=== PATIENT | male | born 1940 | race Caucasian/White ===

== ENCOUNTER 2016-12-16 11:16 | Emergency (ER) | payer OTHER ==
[~2016-12-16] VITALS: Ht 170.2 cm; Wt 97.5 kg
--- NOTE | 2016-12-16 11:47 | ED GENERAL ADULT ---
History of Present Illness General Chief Complaint: Male Genitourinary Problems Stated Complaint: POST OP *2 AND CANT VOID Source: patient Exam Limitations: no limitations Vital Signs & Intake/Output Vital Signs & Intake/Output Vital Signs Date Time Temp Pulse Resp B/P Pulse O2 O2 Flow FiO2 Ox Delivery Rate 12/16 1307 58 18 152/70 98 Room Air 12/16 1216 98 Room Air 12/16 1135 97.0 57 20 154/74 97 Room Air ED Intake and Output 12/17 0000 12/16 1200 Intake Total Output Total 1300 Balance -1300 Output, Urine 1300 Patient 215 lb Weight Allergies Coded Allergies: NO KNOWN ALLERGIES (03/20/14) Triage Note: PT HAD URINARY SURGERY AT [facility] ON MONDAY AND HAS BEEN UNABLE TO URINATE SINCE YESTERDAY. STILL HAS EASLEY AND ITS EMPTY PER PT Triage Nurses Notes Reviewed? yes Onset: Gradual Duration: day(s): (1) Timing: no prior history Injury Environment: home Severity: moderate Severity Numbers: 8 No Modifying Factors: none HPI: Patient is a 76-year-old male who had a urological procedure done 2 days ago and had a Easley catheter placed. He is coming in today concerned over the past 24- hour tease had increased bladder pressure and pain. He reports that he's been drinking a lot of fluids but not much is coming out of the Easley. Denies any fevers or chills. Eating and drinking without difficulty. Denies any nausea or vomiting. Last bowel movement was yesterday. He's been taking the pain medications with little relief and abdominal pressure. He called his urologist and he was instructed to come to the emergency department for evaluation. (AYANNA WOODARD) Reconcile Medications Ciprofloxacin HCl 500 MG TABLET 1 TAB PO BID INFECTION (Reported) Clopidogrel Bisulfate (Clopidogrel) 75 MG TABLET 1 TAB PO DAILY HEART HEALTH (Reported) Escitalopram Oxalate 10 MG TABLET 1 TAB PO DAILY DEPRESSION (Reported) Glipizide 5 MG TABLET 1 TAB PO BID DIABETES (Reported) Lisinopril 5 MG TABLET 1 TAB PO DAILY HIGH BLOOD PRESSURE (Reported) Oxycodone HCl/Acetaminophen (Oxycodone-Acetaminophen 5-325) 5 MG-325 MG TABLET 1 TAB PO TIDPRN PAIN CONTROL (Reported) Simvastatin (Simvastatin*) 40 MG TABLET 1 TAB PO QPM HIGH CHOLESTROL ( Reported) (BEN CLEARY,HARI) Past History Travel History Traveled to [place] past 21 day No Medical History Any Pertinent Medical History? see below for history Cardiovascular: hypertension, hyperlipidemia Endocrine: diabetes Surgical History Surgical History: non-contributory Psychosocial History What is your primary language [place] Tobacco Use: Current Daily Use Daily Tobacco Use Amount/Type: => 5 Cigarettes daily ETOH Use: denies use Illicit Drug Use: denies illicit drug use Family History Hx Contributory? No (YAANNA WOODARD) Review of Systems Review of Systems Constitutional: Reports: no symptoms. Comments Review of systems: See HPI, All other systems negative. Constitutional, no chills fever or weight loss HEENT: No visual changes no sore throat no congestion Cardiovascular: No chest pain ,palpitation , orthopnea or ankle swelling Skin, no jaundice no rashes Respiratory: No dyspnea cough sputum or hemoptysis GI: No nausea no vomiting : No dysuria No hematuria Muscle skeletal: no back pain, no neck pain, Neurologic: No numbness no confusion, no headaches Psych: No stress anxiety or depression,. Heme/endocrine: No bruising no bleeding no polyuria or polydipsia Immunology: No splenectomy or history of AIDS (AYANNA WOODARD) Physical Exam Physical Exam General Appearance: well developed/nourished, no apparent distress, alert, awake , comfortable Comments: Well-developed well-nourished person in no acute distress HEENT: Pupils equally round and reactive to light and accommodation. Nose is atraumatic. Neck: Normal inspection Back: Nontender, no CVA tenderness. Full range of motion Cardiovascular: Regular rate and rhythms no murmurs rubs or gallops, normal JVP Respiratory: Chest nontender. No respiratory distress.breath sounds clear to auscultation bilaterally Abdomen: Soft, obese, tender to palpation in the suprapubic region. No rebound or guarding, nondistended, no appreciable organomegaly. Normal bowel sounds. gu: Lewis colored urine in the Easley. Extremity: No edema Neuro: Alert oriented x3 Skin: No appreciable rash on exposed skin, skin is warm and dry. Psych: Mood and affect is normal, memory and judgment is normal. Core Measures ACS in differential dx? No CVA/TIA Diagnosis: No Severe Sepsis Present: No Septic Shock Present: No (AYANNA WOODARD) Progress Differential Diagnoses I considered the following diagnoses in my evaluation of the patient: Urinary retention, Easley dysfunction, UTI, bladder rupture, kidney stone Plan of Care: Orders Procedure Date/time Status Continuous Bladder Irrigation 12/16 114 Active CULTURE,URINE 12/16 1146 Active URINALYSIS 12/16 1146 Complete Laboratory Tests 12/16/16 1208: Urine Color ORANG H, Urine Clarity HAZY H, Urine pH 6.0, Ur Specific Bowlegs 1.025, Urine Protein 100 H, Urine Ketones NEG, Urine Nitrite POS H, Urine Bilirubin NEG@ICTO, Urine Urobilinogen 2.0 H, Ur Leukocyte Esterase TRACE H, Ur Microscopic SEDIMENT EXAMINED, Urine RBC PACKD H, Urine WBC 3-5 H, Ur Epithelial Cells FEW, Urine Hemoglobin LARGE H, Urine Glucose 100 H Microbiology 12/16 1208 URINE ROUT: Urine Culture - RES Initial ED EKG: none Comments: 12/16/2016 12:11:43 PM on arrival patient no acute distress, has reproducible pain in the suprapubic region. Easley catheter has lewis colored urine. Patient likely has a clot in the bladder that is causing retention. We will your gait to determine if this is the case. 12/16/2016 12:22:08 PM after irrigation of the Easley catheter a clot was removed and we expelled 1300 mL of lewis colored urine. No bright red blood. Urinalysis sent. Patient feeling much better and pain has resolved. (AYANNA WOODARD) Departure Departure Time of Disposition: 1242 Disposition: HOME OR SELF CARE Condition: Stable Clinical Impression Primary Impression: Complication, blocked Easley catheter Qualifiers: Encounter type: initial encounter Qualified Code: T83.091A - Other mechanical complication of indwelling urethral catheter, initial encounter Referrals: KONSTANTIN CLEARY,WEN Leija (PCP/Family) Additional Instructions: FOLLOW UP WITH YOUR UROLOGIST, CALL TO MAKE APPT. KEEP EASLEY IN. INCREASE FLUIDS. RETURN FOR WORSENING SYMPTOMS OR CONCERNS. WE WERE ABLE TO REMOVE A CLOT FROM THE EASLEY TO ALLOW FOR BETTER URINE FLOW FROM YOUR BLADDER TO THE EASLEY. Continue Cipro they were previously prescribed by your urologist. Departure Forms: Customer Survey General Discharge Information (AYANNA WOODARD) PA/SUPERVISOR CARTOGR[employer]HY Co-Sign Statement Statement: ED Attending supervision documentation- [X] I saw and evaluated the patient. I have also reviewed all the pertinent lab results and diagnostic results. I agree with the findings and the plan of care as documented in the PA's/SUPERVISOR CARTOGRAPHY's documentation. [X] I have reviewed the ED Record and agree with the PA's/SUPERVISOR CARTOGRAPHY's documentation. [] Additions or exceptions (if any) to the PAs/SUPERVISOR CARTOGRAPHY's note and plan are summarized below: [] (BEN CLEARY,HARI) Critical Care Note Critical Care Note Critical Care Time: non-applicable (EMELY GARDNER,AYANNA)
[2016-12-16] MEDS ORDERED: LISINOPRIL5 M1 PO (13:04)
[2016-12-16] MEDS ORDERED: CIPROFLOXACIN500 M2 PO (13:04)
[2016-12-16] MEDS ORDERED: GLIPIZIDE5 M2 PO (13:04)
[2016-12-16] MEDS ORDERED: CLOPIDOGREL75 M1 PO (13:05)
[2016-12-16] MEDS ORDERED: SIMVASTATIN40 M1 PO (13:05)
[2016-12-16] MEDS ORDERED: OXYCODONE-ACET1 EACH PO (13:06)
[2016-12-16] MEDS ORDERED: ESCITALOPRAM OX10 MG PO (13:06)
[2016-12-16 13:07] VITALS: BP 152/70
== END 2016-12-16 13:09 ==
LOC: ERH 11:16
DX: T83.091A Other mechanical complication of indwelling urethral catheter, initial encounter (principal)
CPT/HCPCS: 81001; 87086